=== PATIENT | male | born 2000 | race Two or more races ===

== ENCOUNTER 2024-12-29 11:27 | Emergency (ER) | payer OTHER ==
[~2024-12-29] VITALS: Ht 193 cm; Wt 108.0 kg
[2024-12-29] MEDS ORDERED: GUAIFENESIN 200 MG/10 ML BLIST.PACK PO ONE ×2 (13:59→14:00)
[2024-12-29] MEDS ORDERED: ACETAMINOPHEN 500 MG GEL..CAP PO ONE ×2 (13:59→14:00)
[2024-12-29 14:04] LABS: BASO % 0.2 % (0.1-1.2); EOS # 0.14 (0.04-0.54); EOS % 2.3 % (0.7-7.0); LYMPH # 0.71 (1.18-3.74); LYMPH % 11.8 % (19.3-53.1); MEAN PLATELET VOLUME 9.90 fl (9.4-12.4); MONO # 0.60 (0.24-0.82); MONO % 9.9 % (4.7-12.5); NEUT # 4.57 (1.56-6.13); NEUT % 75.6 % (34.0-71.1); RED CELL DISTRIBUTION WIDTH 12.1 % (11.6-14.4)
[2024-12-29 14:24] LABS: COVID-19 AG NEGATIVE (NEGATIVE)
== END 2024-12-29 15:41 | disposition home or self-care (01) ==
LOC: ER 11:27
PROVIDERS: General Practice
DX: J10.1 Influenza due to other identified influenza virus with other respiratory manifestations (principal); Z20.822 Contact with and (suspected) exposure to COVID-19; Z87.09 Personal history of other diseases of the respiratory system